=== PATIENT | female | born 1960 | race Two or more races ===

== ENCOUNTER 2022-03-13 16:17 | Inpatient (IN) | payer OTHER ==
[~2022-03-13] VITALS: Ht 157.5 cm; Wt 64.0 kg
[2022-03-14] MEDS ORDERED: VYTORIN 10-201 EACH PO (11:43)
[2022-03-14] MEDS ORDERED: LEVO-T25 MCG PO (11:43)
[2022-03-14] MEDS ORDERED: NORVASC2.5 MG PO (11:43)
[2022-03-19] MEDS ORDERED: DULOXETINE HCL60 MG (13:38)
[2022-03-19] MEDS ORDERED: DICYCLOMINE HCL20 MG (13:38)
[2022-03-19] MEDS ORDERED: QUETIAPINE FUM200 MG (13:38)
[2022-03-19] MEDS ORDERED: ALPRAZOLAM1 MG (13:38)
[2022-03-19] MEDS ORDERED: GABAPENTIN600 MG (13:39)
[2022-03-19] MEDS ORDERED: FOLIC ACID1 MG (13:39)
[2022-03-19] MEDS ORDERED: IBANDRONATE SO150 MG (13:40)
[2022-03-19] MEDS ORDERED: MELOXICAM15 MG (13:40)
[2022-03-19] MEDS ORDERED: TIZANIDINE HCL4 MG (13:40)
[2022-03-19] MEDS ORDERED: CORTISPORIN EAR10 M1 (13:40)
[2022-03-19] MEDS ORDERED: OMEPRAZOLE20 MG (13:40)
== END 2022-03-21 15:52 | disposition home or self-care (01) | DRG 330 ==
LOC: O/R 03-19 06:38 → SURH 03-19 11:00
PROVIDERS: ADMIT Colon & Rectal Surgery; ATTEND Colon & Rectal Surgery
PROC: 0DBP4ZZ Excision of Rectum, Percutaneous Endoscopic Approach (ICD-10-PCS; 2022-03-19)
PROC: 0DTN4ZZ Resection of Sigmoid Colon, Percutaneous Endoscopic Approach (ICD-10-PCS; principal; 2022-03-19 13:45)
DX: K57.32 Diverticulitis of large intestine without perforation or abscess without bleeding (principal); K92.1 Melena; N73.6 Female pelvic peritoneal adhesions (postinfective); I11.0 Hypertensive heart disease with heart failure; R00.1 Bradycardia, unspecified; E03.9 Hypothyroidism, unspecified

== ENCOUNTER 2022-06-02 06:06 | Emergency (ER) | payer OTHER ==
[~2022-06-02] VITALS: Ht 157.5 cm; Wt 61.2 kg
[~2022-06-02 06:06] MED LIST: ALPRAZOLAM1 MG; CORTISPORIN EAR10 M1; DICYCLOMINE HCL20 MG; DULOXETINE HCL60 MG; FOLIC ACID1 MG; GABAPENTIN600 MG; IBANDRONATE SO150 MG; LEVO-T25 MCG PO; MELOXICAM15 MG; NORVASC2.5 MG PO; OMEPRAZOLE20 MG; QUETIAPINE FUM200 MG; TIZANIDINE HCL4 MG; VYTORIN 10-201 EACH PO
== END 2022-06-02 11:57 | disposition home or self-care (01) ==
LOC: ER 06:06
DX: R11.2 Nausea with vomiting, unspecified (principal); K57.32 Diverticulitis of large intestine without perforation or abscess without bleeding; K56.7 Ileus, unspecified; R10.9 Unspecified abdominal pain

== ENCOUNTER 2022-06-03 17:43 | Inpatient (IN) | payer OTHER ==
[~2022-06-03] VITALS: Ht 162.6 cm; Wt 68.0 kg
--- NOTE | 2022-06-03 17:55 | NUR ---
PACIENTE FEMENINA ALERTA Y ORIENTADA X3, REFIERE TENER DOLOR ABDOMINLA LUCIA Y ALAN Y NAUSEAS.
--- NOTE | 2022-06-03 18:20 | NUR ---
SE EDUCA A PTE SOBRE TX MEDICO ESTA REFIERE ENTENDER, SE NUHA MUESTRAS DE LABORATORIO UTILIZANDO MEDIDAS ASEPTICAS. SE COLOCA H/L APTE Y SE ADMINISTRAN MEDCIAMENTOS LOS CUALES TOLERA. SE COLOCA TUBO NGT A PTE Y SE CONECTA A SUCCION INTERMITENTE. PTE SE CONTINUA MONITORIANDO POR CAMBIOS.
[2022-06-05] MEDS ORDERED: FOLIC ACID1 MG (09:30)
[2022-06-05] MEDS ORDERED: DICYCLOMINE HCL20 MG (09:30)
[2022-06-05] MEDS ORDERED: ALPRAZOLAM1 MG (09:30)
[2022-06-05] MEDS ORDERED: IBANDRONATE SO150 MG (09:30)
[2022-06-05] MEDS ORDERED: GABAPENTIN600 MG (09:30)
[2022-06-05] MEDS ORDERED: DULOXETINE HCL60 MG (09:31)
[2022-06-05] MEDS ORDERED: QUETIAPINE FUM200 MG (09:31)
[2022-06-05] MEDS ORDERED: MELOXICAM15 MG (09:31)
[2022-06-05] MEDS ORDERED: TIZANIDINE HCL4 M1 (09:31)
[2022-06-05] MEDS ORDERED: OMEPRAZOLE20 MG (09:31)
== END 2022-06-14 11:17 | disposition home or self-care (01) | DRG 389 ==
LOC: ER 17:43 → SURH 18:57
PROVIDERS: ADMIT Colon & Rectal Surgery; ATTEND Colon & Rectal Surgery
PROC: 02HV33Z Insertion of Infusion Device into Superior Vena Cava, Percutaneous Approach (ICD-10-PCS; 2022-06-07)
PROC: BF25ZZZ Computerized Tomography (CT Scan) of Liver (ICD-10-PCS; 2022-06-10)
PROC: 0DJ08ZZ Inspection of Upper Intestinal Tract, Via Natural or Artificial Opening Endoscopic (ICD-10-PCS; principal; 2022-06-11)
PROC: BW21YZZ Computerized Tomography (CT Scan) of Abdomen and Pelvis using Other Contrast (ICD-10-PCS; 2022-06-13)
DX: K56.7 Ileus, unspecified (principal); K80.10 Calculus of gallbladder with chronic cholecystitis without obstruction; N39.0 Urinary tract infection, site not specified; B96.20 Unspecified Escherichia coli [E. coli] as the cause of diseases classified elsewhere; R82.2 Biliuria; E88.09 Other disorders of plasma-protein metabolism, not elsewhere classified; E03.9 Hypothyroidism, unspecified; I11.9 Hypertensive heart disease without heart failure

== ENCOUNTER 2023-03-19 22:14 | Emergency (ER) | payer OTHER ==
[~2023-03-19] VITALS: Ht 157.5 cm; Wt 63.5 kg
[~2023-03-19 22:14] MED LIST changes: +TIZANIDINE HCL4 M1
[2023-03-20] MEDS ORDERED: FAMOTIDINE/PF 20 MG/2 ML VIAL IV PUSH STA ×2 (00:24→04:52)
[2023-03-20] MEDS ORDERED: PROMETHAZINE HCL 50 MG/ML AMPUL IM STA (00:25)
[2023-03-20] MEDS ORDERED: MEPERIDINE HCL/PF 50 MG/ML VIAL IM STA (00:25)
[2023-03-20] MEDS ORDERED: 0.9 % SODIUM CHLORIDE 1,000 ML IV ONE (00:30)
[2023-03-20 01:16] LABS: URINE APPEARANCE Clear; URINE BILIRRUBIN Negative (NEGATIVE); URINE BLOOD Moderate; URINE COLOR Yellow; URINE GLUCOSE Negative (NEGATIVE); URINE LEUKOCYTE Negative; URINE NITRATE Negative; URINE PROTEIN Negative (NEGATIVE); URINE UROBILINOGEN 0.2 E.U./dl
[2023-03-20 01:19] LABS: URINE EPITHELIAL CELLS 1.8 uL (0.0-38.8); URINE RBC 31.7 uL (0.0-20.8)
[2023-03-20 01:21] LABS: HEMATOCRIT 42.6 % (36.0-45.00); HEMOGLOBIN 14.6 g/dL (12.0-15.00); MEAN CELL VOLUME 88.7 fL (80.00-100.00); MEAN CORPUSCULAR HEMOGLOBIN 30.4 pg (27.00-32.0); MEAN CORPUSCULAR HGB CONC 34.2 g/dl (32.0-36.0); PLATELET COUNT 263 K/uL (150-450); RED BLOOD COUNT 4.81 M/uL (4.00-6.00); RED CELL DISTRIBUTION WIDTH 13.2 % (11.5-14.5)
[2023-03-20 01:23] LABS: URINE WBC 0.6 uL (0.0-23.2)
[2023-03-20 01:48] LABS: BILIRUBIN TOTAL 0.39 mg/dL (0.3-1.2); CALCIUM 9.1 mg/dL (8.5-10.1); CREATININE SERUM 0.85 mg/dL (0.55-1.02); GFR 67.33; GLOBULINA 3.6 G/DL (2.4-3.5); POTASSIUM 4.34 mEq/L (3.5-5.1); TOTAL PROTEIN 7.6 gm/dL (6.4-8.2)
[2023-03-20] MEDS ORDERED: HYOSCYAMINE SULFATE 0.125 MG TAB.SUBL SL STA (04:52)
[2023-03-20] MEDS ORDERED: MAG HYDROX/ALUMINUM HYD/SIMETH 30 ML BLIST.PACK PO STA (04:52)
[2023-03-20] MEDS ORDERED: LACTULOSE 20 G/30 ML BLIST.PACK PO ONE (08:45)
[2023-03-20] MEDS ORDERED: MEPERIDINE HCL 25 MG/ML AMPUL IV ONE (14:30)
[2023-03-20] MEDS ORDERED: MEPERIDINE HCL 25 MG/ML AMPUL IV STA (14:33)
[2023-03-20] MEDS ORDERED: GLYCERIN 2.1 GM SUPP.RECT RECTAL ONE (16:00)
== END 2023-03-20 17:40 | disposition home or self-care (01) ==
LOC: ER 22:14
PROVIDERS: General Practice
DX: R10.9 Unspecified abdominal pain (principal); I10 Essential (primary) hypertension; E03.9 Hypothyroidism, unspecified; Z98.890 Other specified postprocedural states; K57.30 Diverticulosis of large intestine without perforation or abscess without bleeding; R11.0 Nausea; K59.00 Constipation, unspecified
CPT/HCPCS: 74177; 74240; 96365; 99284; J2175